=== PATIENT | female | born 1980 | race Caucasian/White ===

== ENCOUNTER → 2020-10-23 16:21 | Outpatient (CLI) | payer BC, SELFPAY ==
[2017-10-27 16:02] VITALS: BMI 30.8
[2020-10-23 17:46] LABS: Estradiol 50.1 pg/mL
== END ==
PROVIDERS: Visit Provider Obstetrics & Gynecology
DX: E28.8 Other ovarian dysfunction (principal); E28.1 Androgen excess
CPT/HCPCS: 36415; 82627; 82670; 84403; 82626

== ENCOUNTER → 2020-12-06 16:20 | Outpatient (CLI) | payer BC, SELFPAY ==
[2017-10-27 16:02] VITALS: BMI 30.8
[2020-12-06 18:08] LABS: Progesterone Level 17.34 ng/mL (See Comment)
== END ==
PROVIDERS: Visit Provider Obstetrics & Gynecology
DX: E28.8 Other ovarian dysfunction (principal); Z51.81 Encounter for therapeutic drug level monitoring
CPT/HCPCS: 36415; 84144

== ENCOUNTER → 2021-01-01 16:26 | Outpatient (CLI) | payer BC, SELFPAY ==
[2017-10-27 16:02] VITALS: BMI 30.8
[2021-01-01 17:43] LABS: Vitamin D,25 Hydroxy 32.6 ng/mL
[2021-01-01 17:47] LABS: Free T3 2.4 pg/mL (2.18-3.98); T4 Free Direct 1.08 ng/dL (0.76-1.46); Thyroid Stim Hormone (TSH) 1.85 uIU/mL (0.358-3.74)
== END ==
PROVIDERS: Visit Provider Obstetrics & Gynecology
DX: E28.1 Androgen excess (principal); E28.8 Other ovarian dysfunction; E63.9 Nutritional deficiency, unspecified; E03.9 Hypothyroidism, unspecified; Z51.81 Encounter for therapeutic drug level monitoring
CPT/HCPCS: 36415; 82306; 84144; 84146; 84439; 84443; 84481

== ENCOUNTER → 2021-01-29 17:02 | Outpatient (CLI) | payer BC, SELFPAY ==
[2017-10-27 16:02] VITALS: BMI 30.8
[2021-01-29 18:12] LABS: Progesterone Level 29.03 ng/mL (See Comment)
== END ==
PROVIDERS: Visit Provider Obstetrics & Gynecology
DX: E28.1 Androgen excess (principal); E28.8 Other ovarian dysfunction; E03.9 Hypothyroidism, unspecified
CPT/HCPCS: 36415; 84144

== ENCOUNTER → 2021-02-28 16:28 | Outpatient (CLI) | payer BC, SELFPAY ==
[2017-10-27 16:02] VITALS: BMI 30.8
[2021-02-28 17:32] LABS: Progesterone Level 17.79 ng/mL (See Comment)
== END ==
PROVIDERS: Visit Provider Obstetrics & Gynecology
DX: E28.1 Androgen excess (principal); E28.8 Other ovarian dysfunction; E03.9 Hypothyroidism, unspecified
CPT/HCPCS: 36415; 84144

== ENCOUNTER → 2021-04-01 16:28 | Outpatient (CLI) | payer BC, SELFPAY ==
[2017-10-27 16:02] VITALS: BMI 30.8
[2021-04-01 18:49] LABS: Progesterone Level 8.59 ng/mL (See Comment)
== END ==
PROVIDERS: Visit Provider Obstetrics & Gynecology
DX: E28.1 Androgen excess (principal); E28.8 Other ovarian dysfunction; E03.9 Hypothyroidism, unspecified
CPT/HCPCS: 36415; 84144

== ENCOUNTER → 2021-04-11 20:15 | Outpatient (CLI) | payer BC, SELFPAY ==
[2017-10-27 16:02] VITALS: BMI 30.8
--- NOTE | 2021-04-11 | EMB_PTH ---
PATIENT: BETZAIDA WASSERMAN LOC: [facility] U#:[id number] AGE/SX: 44/F ROOM: RE04/11/[address]: Dr. Mali Grayson MD : 1980 BED: DIS: SPEC #: [id number] RECD: 04/11/21 20:15 STATUS: ROE PERRYStephany #: [id number] RODRIGO: 04/11/21 00:[address]: Mali Schafer DEPT: SURGICAL PATHOLOGY RECD BY: Amador Martinez Tissues: Endometrium, NOS Procedures: Surgery Specimen Level IV HEADER OPERATION: Endometrial biopsy PRE-OP DIAGNOSIS: Infertility; rule out endometritis TISSUE SUBMITTED: Endometrial biopsy MICROSCOPIC DIAGNOSIS Endometrium, biopsy: Mildly disordered proliferative endometrium. Mild chronic endometritis. AM:ele 04/16/2021 MICROSCOPIC DESCRIPTION Slides are reviewed. GROSS DESCRIPTION Received in fixative is one container labeled with the patient's name and designated EMB. The specimen consists of multiple fragments of aladna hemorrhagic soft tissue that in aggregate measure 2.5 x 1 x 0.1 cm. The specimen is totally submitted in one cassette. / SJ:ele 04/12/21 TC:3 CPT: 98621
== END ==
PROVIDERS: Referring Provider Obstetrics & Gynecology; Visit Provider Obstetrics & Gynecology
DX: N97.9 Female infertility, unspecified (principal)
CPT/HCPCS: 88305

== ENCOUNTER 2022-01-17 15:52 | Outpatient (CLI) | payer BC, SELFPAY ==
[2022-01-17 18:12] LABS: Free T3 2.2 pg/mL (2.18-3.98); T4 Free Direct 1.17 ng/dL (0.76-1.46); Thyroid Stim Hormone (TSH) 1.28 uIU/mL (0.358-3.74)
[2022-01-31 16:12] LABS: T3 Reverse 22.7 ng/dL (9.2-24.1)
== END 2022-01-17 23:59 | disposition home or self-care (01) ==
LOC: WOBLAB 15:53
PROVIDERS: Visit Provider Obstetrics & Gynecology
DX: E03.9 Hypothyroidism, unspecified (principal)
CPT/HCPCS: 36415; 84439; 84443; 84481; 84482